=== PATIENT | male | born 1950 | race Caucasian/White ===

== ENCOUNTER → 2016-08-09 | Outpatient (CLI) | payer BC ==
--- NOTE | 2016-08-17 09:20 | SS ---
ADMIT: 08/09/2016 RM/LOC: [facility] MR#: [id number] [address] [id number] [address] [place] [address] Sleep Study SEX: M AGE: 66 : 1950 STUDY DATE: 08/09/2016 CLINICAL HISTORY: A 66-year-old male, body mass of 34.7, 66 inches tall, weight 217 pounds with symptoms of snoring, gasping for daytime, somnolence, in the sleep lab for evaluation of obstructive sleep apnea. TECHNICAL DESCRIPTION: Split-night polysomnogram performed on night of 08/09/2016, attended by a trained medical laboratory technologist. DIAGNOSTIC POLYSOMNOGRAM FINDINGS: SLEEP: Total time in bed is 140 minutes, total sleep time is 124 minutes, sleep efficiency is 88.6%. 75.6% hours spent in stage II sleep, 15.2% hours spent in stage REM. BREATHING: Severe obstructive sleep apnea with an apnea-hypopnea index of 46. Supine apnea-hypopnea index of 73.7. During the diagnostic study, most of the obstructive events were obstructive hypopneas seen in supine position. OXYGEN SATURATION: Mean sleeping 90%, lowest oxygen 84%, 41.1% time was spent saturating 80% to 89%. CARDIAC: Average heart rate 81 beats per minute. MOVEMENTS/POSITION: During the study, the patient slept in supine lateral position with periodic leg movement index of 9.2. CPAP/BIPAP TITRATION FINDINGS: TITRATION DESCRIPTION: The patient was titrated initially on CPAP from 5 cm to 15 cm, then was started on BiPAP from 15/10 to 17/13. A Mirage Quattro large mask was used as interface. SLEEP: Total time in bed on titration is 345.5 minutes, total sleep time is 315.5 5 minutes, sleep efficiency 91.3%. 69.2%time was spent in stage II sleep, 22.5% time was spent in stage REM. BREATHING: The patient had ongoing obstructive hypopneas in spite of titrating up to CPAP of 15 cm and hence failed CPAP. On BiPAP at , the patient was seen in non-REM sleep in supine position with complete resolution of obstructive events. REM supine sleep was not seen at this pressure. OXYGEN SATURATION: Mean sleeping oxygen saturation is 91%. Lowest oxygen saturation is 75% in REM sleep. CARDIAC: Average heart rate is 76 beats per minute. MOVEMENTS/POSITION: During the study, the patient slept in the supine position with no significant leg movements. IMPRESSION AND PLAN: 1. Severe positional obstructive sleep apnea with apnea-hypopnea index of 46. ADMIT: 08/09/2016 RM/LOC: [facility] MR#: [id number] [address] [place] [id number] [address] [place] [address] Sleep Study SEX: M AGE: 66 : 1950 2. CPAP/BiPAP titration reveals that the patient failed CPAP because of ongoing obstructive hypopneas and a few central apneas. On BiPAP at , the patient was seen in non-REM sleep in supine position with good resolution of obstructive events. However, REM supine sleep was not seen at this ending BiPAP pressure of . At this point in time, I would recommend initiating BiPAP at and recommend compliance followup. Recommend losing weight, avoiding sedatives or alcohol, refrain from driving if excessively sleepy, recommend avoiding sleeping in supine position. If persistent events appear to occur on compliance followup, then a second night of titration may also be considered for titrating in REM sleep. Clinical correlation needed. BiPAP compliance followup is recommended. Antonio Pollock MD/ bhavik JOB #: [id number] CC: Mikal Mcclendon MD, Attending Physician Edinson Lee MD, Family Physician
== END | disposition home or self-care (01) ==
LOC: RESC 20:35
DX: R06.83 Snoring (principal); R40.0 Somnolence; G47.33 Obstructive sleep apnea (adult) (pediatric)